=== PATIENT | male | born 1990 | race Caucasian/White ===

== ENCOUNTER 2018-12-24 17:06 | Observation (INO) | payer SELFPAY ==
[~2018-12-24] VITALS: Ht 182.9 cm; Wt 120.2 kg
[2018-12-24] MEDS ORDERED: MORPHINE SULFATE INJ 4 MG/ML INJ 1ML IV STA (17:46)
[2018-12-24] MEDS ORDERED: CEFTRIAXONE SOD 1 GM/NS 50 ML 50 ML IV STA (17:46)
[2018-12-24] MEDS ORDERED: ONDANSETRON HCL INJ 2MG/ML 2ML 2 MG/ML VIAL IV STA (17:46)
[2018-12-24] MEDS ORDERED: SODIUM CHLORIDE 0.9% 1000ML 1,000 ML IV STA (17:46)
[2018-12-24 18:15] LABS: BASOPHILS # (AUTO) 0.1 (0.0-0.1); BASOPHILS % 0.8 % (0.0-1.0); EOSINOPHILS # (AUTO) 0.6 (0.0-0.4); EOSINOPHILS % 4.8 % (0.0-6.0); HEMATOCRIT 36.9 % (38.2-49.6); HEMOGLOBIN 11.6 g/dL (14.0-18.0); LYMPHOCYTES # (AUTO) 3.3 (1.0-3.2); LYMPHOCYTES % 27.2 % (18.0-39.1); MEAN CORPUSCULAR HEMOGLOBIN 23.3 pg (28-32); MEAN CORPUSCULAR HGB CONC 31.4 g/dL (31-35); MEAN CORPUSCULAR VOLUME 74.1 fL (81-99); MONOCYTES # (AUTO) 0.7 (0.2-0.8); MONOCYTES % 5.3 % (4.4-11.3); NEUTROPHILS # (AUTO) 7.5 (2.1-6.9); NEUTROPHILS % 61.3 % (38.7-80.0); PLATELET COUNT 324 x10e3/uL (140-360); RED BLOOD COUNT 4.98 x10e6/uL (4.3-5.7); RED CELL DISTRIBUTION WIDTH 15.2 % (11.7-14.4)
[2018-12-24 18:19] LABS: CLARITY,URINE SL CLOUDY (CLEAR); COLOR,URINE YELLOW (YELLOW); KETONES,URINE NEGATIVE (NEGATIVE); LEUKOCYTE ESTERASE ,URINE NEGATIVE (NEGATIVE); NITRITE,URINE NEGATIVE (NEGATIVE); PROTEIN,URINE DIPSTICK NEGATIVE (NEGATIVE)
[2018-12-24 18:20] LABS: BILIRUBIN,URINE NEGATIVE (NEGATIVE); URINE UROBILINOGEN 0.2 mg/dL (0.2 - 1)
[2018-12-24 18:32] LABS: BACTERIA,URINE FEW /HPF; EPITHELIAL CELLS,URINE MODERATE /LPF
[2018-12-24 18:34] LABS: ALANINE AMINOTRANSFERASE 47 IU/L (0-55); ALBUMIN 3.7 g/dL (3.5-5.0); ALBUMIN/GLOBULIN RATIO 0.8 (0.8-2.0); ALKALINE PHOSPHATASE 79 IU/L (40-150); ANION GAP 12.1 mmol/L (8-16); BLOOD UREA NITROGEN 13 mg/dL (7-26); BUN/CREATININE RATIO 13 (6-25); CALCIUM 9.7 mg/dL (8.4-10.2); CARBON DIOXIDE 24 mmol/L (22-29); CHLORIDE 103 mmol/L (98-107); CREATININE, SERUM 0.98 mg/dL (0.72-1.25); EST GLOMERULAR FILTRATION RATE > 60 ML/MIN (60-); GLUCOSE 90 mg/dL (74-118); LIPASE 16 U/L (8-78); POTASSIUM 4.1 mmol/L (3.5-5.1); SODIUM 135 mmol/L (136-145)
--- NOTE | 2018-12-24 19:20 | Diagnostic Imaging Report ---
EXAM: CT Abdomen and Pelvis WITH contrast INDICATION: Right lower abdominal pain. Morbid obesity. Cholecystectomy. COMPARISON: None TECHNIQUE: Abdomen and pelvis were scanned utilizing a multidetector helical scanner from the lung base to the pubic symphysis after administration of IV contrast. Coronal and sagittal reformations were obtained. Routine protocol was performed. Scan was performed when during portal venous phase. IV CONTRAST: 100 mL of Isovue-370 ORAL CONTRAST: Water RADIATION DOSE: Total DLP: 1621 mGy*cm Estimated effective dose: (DLP x 0.015 x size factor) mSv. Dose modulation, iterative reconstruction and weight base adjustment of the MA/KV was utilized to reduce the patient dose to as low as reasonably achievable COMPLICATIONS: None FINDINGS: LINES and TUBES: None. LOWER THORAX: Unremarkable HEPATOBILIARY: No focal hepatic lesions. No biliary ductal dilation. GALLBLADDER: Cholecystectomy SPLEEN: No splenomegaly. PANCREAS: No focal masses or ductal dilatation. ADRENALS: No adrenal nodules KIDNEYS/URETERS: Kidneys enhance symmetrically. No hydronephrosis. No cystic or solid mass lesions. No stones. GI TRACT: No abnormal distention, wall thickening, or evidence of bowel obstruction. The appendix is not clearly seen however, no inflammatory changes are seen in the right lower quadrant of the abdomen. There are small nonspecific right lower abdominal lymph nodes PELVIC ORGANS/BLADDER: Unremarkable. LYMPH NODES: No lymphadenopathy. VESSELS: Unremarkable. PERITONEUM / RETROPERITONEUM: No free air or fluid. BONES: Unremarkable. SOFT TISSUES: Unremarkable. IMPRESSION: The appendix is not clearly seen however, no inflammatory changes are seen in the right lower quadrant of the abdomen. There are small nonspecific right lower abdominal lymph nodes Signed by: Dr. Matheus David M.D. on 12/24/2018 7:16 PM
[2018-12-24] MEDS ORDERED: ONDANSETRON HCL INJ 2MG/ML 2ML 2 MG/ML VIAL IV PRN (19:45)
[2018-12-24] MEDS ORDERED: MORPHINE SULFATE 2 MG/ML SYR 1ML IV PRN (19:45)
--- OUTSIDE RECORDS SUMMARY | 2018-12-24 20:06 | XMS REPORT ---
Author Author [facility] Address Unknown Phone Unavailable Care Team Providers Care Dental Front Office Assistant Name Role Phone RACHELLE REGAN Unavailable Unavailable Problems This patient has no known problems. Allergies, Adverse Reactions, Alerts This patient has no known allergies or adverse reactions. Medications This patient has no known medications. Results Test Description Test Time Test Comments Text Results Atomic Results Result Comments CT ABDOMEN/PELVIS W 2018-12-24 19:10:00 [place] [address] Patient Name: MISAEL CAO MR #: [id number] : 1990 Age/Sex: 28/M Req #: [id number] Adm Physician: Ordered by: KING PALMER ASSOCIATE MEDICAL DIRECTOR Report #: [id number] Location: ER Room/Bed: Procedure: [id number] CT/CT ABDOMEN/PELVIS W Exam Date: 12/24/18 Exam Time: 1822 REPORT STATUS: Signed EXAM: CT Abdomen and Pelvis WITH contrast INDICA TION: Right lower abdominal pain. Morbid obesity. Cholecystectomy. COMPARISON: None TECHNIQUE: Abdomen and pelvis were scanned utilizing a multidetector helical scanner from the lung base to the pubic symphysis after administration of IV contrast. Coronal and sagittal reformations were obtained. Routine protocol was performed. Scan was performed when during portal venous phase. IV CONTRAST: 100 mL of Isovue-370 ORAL CONTRAST: Water RADIATION DOSE: Total DLP: 1621 mGy*cm Estimated effective dose: (DLP x 0.015 x size factor) mSv. Dose modulation, iterative reconstruction and weight base adjustment of the MA/KV was utilized to reduce the patient dose to as low as reasonably achievable COMPLICATIONS: None FINDINGS: LINES and TUBES: None. LOWER THORAX: Unremarkable HEPATOBILIARY: No focal hepatic lesions. No biliary ductal dilation. GALLBLADDER: Cholecystectomy SPLEEN: No splenomegaly. PANCREAS: No focal masses or ductal dilatation. ADRENALS: No adrenal nodules KIDNEYS/URETERS: Kidneys enhance symmetrically. No hydronephrosis. No cystic or solid mass lesions. No stones. GI TRACT: No abnormal distention, wall thickening, or evidence of bowel obstruction. The appendix is not clearly seen however, no inflammatory changes are seen in the right lower quadrant of the abdomen. There are small nonspecific right lower abdominal lymph nodes PELVIC ORGANS/BLADDER: Unremarkable. LYMPH NODES: No lymphadenopathy. VESSELS: Unremarkable. PERITONEUM / RETROPERITONEUM: No free air or fluid. BONES: Unremarkable. SOFT TISSUES: Unremarkable. IMPRESSION: The appendix is not clearly seen however, no in flammatory changes are seen in the right lower quadrant of the abdomen. There are small nonspecific right lower abdominal lymph nodes Signed by: Dr. Matheus David M.D. on 12/24/2018 7:16 PM Dictated By: MATHEUS DAVID MD, MD 15 Transcribed By: DAVID on 12/24/181915 COPY TO: KING PALMER NP
[2018-12-24] MEDS ORDERED: IOPAMIDOL 370 MG/ML 200 ML INFUS..BTL INJ ONE (20:57)
[2018-12-24] MEDS ORDERED: SODIUM CHLORIDE 0.9% 50ML 50 ML ONE (20:57)
[2018-12-24] MEDS: SODIUM CHLORIDE 0.9% 1000ML 1,000 ML IV SCH (21:16)
[2018-12-24] MEDS: FAMOTIDINE 20 MG/2 ML VIAL IV SCH (21:20)
[2018-12-24 23:19] VITALS: BP 135/95
[2018-12-24 23:20] VITALS: BP 135/95
[2018-12-24 23:58] VITALS: BP 135/95
[2018-12-25] VITALS (8 sets, daily range): BP systolic 108–139; BP diastolic 54–98
[2018-12-25] MEDS: SODIUM CHLORIDE 0.9% 1000ML 1,000 ML IV SCH ×2 (05:15→11:33)
[2018-12-25 06:19] LABS: BASOPHILS # (AUTO) 0.1 (0.0-0.1); EOSINOPHILS # (AUTO) 0.5 (0.0-0.4); EOSINOPHILS % 5.2 % (0.0-6.0); HEMATOCRIT 33.1 % (38.2-49.6); HEMOGLOBIN 10.2 g/dL (14.0-18.0); LYMPHOCYTES % 32.5 % (18.0-39.1); MEAN CORPUSCULAR HEMOGLOBIN 23.3 pg (28-32); MEAN CORPUSCULAR HGB CONC 30.8 g/dL (31-35); MEAN CORPUSCULAR VOLUME 75.7 fL (81-99); MONOCYTES # (AUTO) 0.5 (0.2-0.8); NEUTROPHILS # (AUTO) 5.1 (2.1-6.9); NEUTROPHILS % 55.9 % (38.7-80.0); PLATELET COUNT 244 x10e3/uL (140-360); RED BLOOD COUNT 4.37 x10e6/uL (4.3-5.7); RED CELL DISTRIBUTION WIDTH 15.1 % (11.7-14.4)
[2018-12-25 06:48] LABS: ALANINE AMINOTRANSFERASE 48 IU/L (0-55); ALBUMIN 3.2 g/dL (3.5-5.0); ALBUMIN/GLOBULIN RATIO 0.9 (0.8-2.0); ALKALINE PHOSPHATASE 73 IU/L (40-150); ANION GAP 12.1 mmol/L (8-16); BLOOD UREA NITROGEN 12 mg/dL (7-26); BUN/CREATININE RATIO 13 (6-25); CALCIUM 8.9 mg/dL (8.4-10.2); CARBON DIOXIDE 26 mmol/L (22-29); CHLORIDE 105 mmol/L (98-107); CREATININE, SERUM 0.95 mg/dL (0.72-1.25); EST GLOMERULAR FILTRATION RATE > 60 ML/MIN (60-); GLUCOSE 100 mg/dL (74-118); LIPASE 13 U/L (8-78); POTASSIUM 4.1 mmol/L (3.5-5.1); SODIUM 139 mmol/L (136-145)
[2018-12-25] MEDS: FAMOTIDINE 20 MG/2 ML VIAL IV SCH ×2 (09:00→20:35)
--- NOTE | 2018-12-25 15:29 | Diagnostic Imaging Report ---
Exam: KUB - 2 views Indication: Abdominal Pain Comparison: CT abdomen pelvis of 12/24/2018 Findings: Nonobstructive bowel gas pattern. No evidence of free intraperitoneal air. No evidence of abnormal calcification. No acute bony abnormality. Status post cholecystectomy. Impression: No acute radiographic abnormality. Signed by: Chandan Neal MD on 12/25/2018 3:25 PM
[2018-12-25] MEDS ORDERED: CEFTRIAXONE SOD 1 GM/NS 50 ML 50 ML IV SCH (18:00)
[2018-12-26 00:25] VITALS: BP 144/95
[2018-12-26] MEDS: SODIUM CHLORIDE 0.9% 1000ML 1,000 ML IV SCH ×3 (01:05→09:40)
[2018-12-26 05:47] LABS: BASOPHILS # (AUTO) 0.1 (0.0-0.1); EOSINOPHILS # (AUTO) 0.5 (0.0-0.4); EOSINOPHILS % 5.8 % (0.0-6.0); HEMOGLOBIN 9.6 g/dL (14.0-18.0); LYMPHOCYTES # (AUTO) 2.3 (1.0-3.2); LYMPHOCYTES % 29.3 % (18.0-39.1); MEAN CORPUSCULAR HEMOGLOBIN 22.7 pg (28-32); MEAN CORPUSCULAR VOLUME 75.8 fL (81-99); MONOCYTES # (AUTO) 0.5 (0.2-0.8); MONOCYTES % 5.9 % (4.4-11.3); NEUTROPHILS # (AUTO) 4.5 (2.1-6.9); NEUTROPHILS % 57.4 % (38.7-80.0); PLATELET COUNT 218 x10e3/uL (140-360); RED BLOOD COUNT 4.22 x10e6/uL (4.3-5.7)
[2018-12-26 06:01] LABS: ALANINE AMINOTRANSFERASE 41 IU/L (0-55); ALBUMIN 2.9 g/dL (3.5-5.0); ALBUMIN/GLOBULIN RATIO 0.9 (0.8-2.0); ALKALINE PHOSPHATASE 66 IU/L (40-150); ANION GAP 11.8 mmol/L (8-16); BLOOD UREA NITROGEN 8 mg/dL (7-26); BUN/CREATININE RATIO 9 (6-25); CALCIUM 8.6 mg/dL (8.4-10.2); CARBON DIOXIDE 25 mmol/L (22-29); CHLORIDE 107 mmol/L (98-107); CREATININE, SERUM 0.88 mg/dL (0.72-1.25); EST GLOMERULAR FILTRATION RATE > 60 ML/MIN (60-); GLUCOSE 118 mg/dL (74-118); POTASSIUM 3.8 mmol/L (3.5-5.1); SODIUM 140 mmol/L (136-145)
[2018-12-26 06:08] VITALS: BP 109/63
[2018-12-26] MEDS: FAMOTIDINE 20 MG/2 ML VIAL IV SCH (08:45)
[2018-12-26 09:46] VITALS: BP 109/63
[2018-12-26 10:24] VITALS: BP 139/86
[2018-12-26 12:51] VITALS: BP 142/85
[2018-12-26] MEDS ORDERED: CIPRO500 MG PO (15:26)
== END 2018-12-26 16:20 | disposition home or self-care (01) ==
LOC: ER 17:06 → ERHOLD 19:44 → MED/SURG2 20:53
PROVIDERS: ADMIT Surgery; ATTEND Surgery
DX: K52.9 Noninfective gastroenteritis and colitis, unspecified (principal); E66.01 Morbid (severe) obesity due to excess calories; Z68.35 Body mass index [BMI] 35.0-35.9, adult
CPT/HCPCS: 36415 ×3; 74018; 74177; 80053 ×3; 81001; 83690 ×2; 85025 ×3; 87086; 99284; G0378 ×3; J0696 ×2; J2270; J2405; J7030 ×3; Q9967